=== PATIENT | male | born 1970 | race African-American/Black ===

== ENCOUNTER 2016-10-29 11:04 | Emergency (ER) | payer OTHER ==
[~2016-10-29] VITALS: Ht 172.7 cm; Wt 113.4 kg
[~2016-10-29 11:04] MED LIST: NYQUIL D COLD295 ML; OSELB75 PO; TUSSIONEX PENN473 ML PO; TYLENOL COLD &1 EACH; VENTOLIN HFA 1818 GM INH; [UNRECOGNIZED DRUG - OTHER]
[2016-10-29 11:26] LABS: URINE BILIRUBIN NEGATIVE (Negative); URINE BLOOD NEGATIVE (Negative); URINE COLOR YELLOW; URINE GLUCOSE-RANDOM* NEGATIVE (Negative); URINE KETONES NEGATIVE (Negative); URINE NITRITE NEGATIVE (Negative); URINE PROTEIN (DIPSTICK) TRACE (Negative); URINE SPECIFIC GRAVITY 1.015 (1.003-1.035)
[2016-10-29 11:27] LABS: HEMATOCRIT 44.1 % (42.0-52.0); HEMOGLOBIN 14.4 gm/dL (14.0-18.0); MCH 24.3 pg (26.0-34.0); MCHC 32.7 g/dL (28.0-37.0); MCV 74.5 fL (80.0-100.0); PLATELET COUNT 230 thou/uL (150-400); RBC 5.93 mil/uL (4.50-6.00); RDW 14.4 % (10.5-14.5); WBC 8.8 thou/uL (4.0-11.0)
[2016-10-29 11:28] LABS: MANUAL DIFF YES
[2016-10-29 11:35] LABS: CALCIUM 8.3 mg/dL (8.5-10.1); CREATININE 1.1 mg/dL (0.7-1.3)
[2016-10-29 11:39] LABS: TOTAL BILIRUBIN 0.5 mg/dL (<0.1-1.0); TOTAL PROTEIN 7.9 g/dL (6.4-8.2)
[2016-10-29 11:45] LABS: ABSOLUTE NEUTROPHILS 7.2 thou/uL (1.4-8.2); TOTAL CELL COUNT 100
[2016-10-29 11:46] LABS: ANISOCYTOSIS 1+; MICROCYTES 1+
[2016-10-29] MEDS ORDERED: NORCO 5-325 TA1 EACH PO (13:53)
[2016-10-29 14:12] VITALS: BP 145/88
== END 2016-10-29 14:16 | disposition home or self-care (01) ==
LOC: ER 11:04
PROVIDERS: Physician Assistant
DX: N20.0 Calculus of kidney (principal)

== ENCOUNTER 2019-03-06 03:45 | Emergency (ER) | payer OTHER ==
[~2019-03-06] VITALS: Ht 175.3 cm; Wt 110.2 kg
[~2019-03-06 03:45] MED LIST changes: +NORCO 5-325 TA1 EACH PO
[2019-03-06] MEDS ORDERED: NOHOMEMEDICATIONS (03:55)
[2019-03-06 04:35] LABS: URINE BILIRUBIN NEGATIVE (Negative); URINE BLOOD TRACE (Negative); URINE CLARITY CLOUDY; URINE COLOR YELLOW; URINE GLUCOSE-RANDOM* NEGATIVE (Negative); URINE KETONES NEGATIVE (Negative); URINE NITRITE-REFLEX NEGATIVE (Negative); URINE PROTEIN (DIPSTICK) 1+ (Negative)
[2019-03-06 04:52] LABS: URINE LEUKOCYTES-REFLEX 3+ (Negative)
[2019-03-06 04:56] LABS: CALCIUM 8.7 mg/dL (8.5-10.1); POTASSIUM 3.5 mmol/L (3.5-5.1)
[2019-03-06 04:57] LABS: BACTERIA-REFLEX >30 Many /HPF (None Seen); CASTS None Seen /LPF (None Seen); CRYSTALS None Seen /LPF (None Seen); MUCUS 0-3 Light strn/LPF (None Seen); SQUAMOUS 4-10 Moderate /LPF (0-3); URINE RBC 0-2 Rare /HPF (0-2); URINE WBC-REFLEX >25 Many /HPF (0-5)
[2019-03-06 05:02] LABS: ALBUMIN 3.6 g/dL (3.4-5.0); DIRECT BILIRUBIN 0.2 mg/dL (<0.1-0.3); TOTAL PROTEIN 7.8 g/dL (6.4-8.2)
[2019-03-06 05:32] LABS: ABSOLUTE NEUTROPHILS 7.3 thou/uL (1.4-8.2); BASOPHILS 0.4 % (0.0-2.0); EOSINOPHILS 1.1 % (0.0-3.0); HEMATOCRIT 40.4 % (42.0-52.0); HEMOGLOBIN 13.5 gm/dL (14.0-18.0); LYMPHOCYTES 11.2 % (24.0-44.0); MCH 24.5 pg (26.0-34.0); MCHC 33.3 g/dL (28.0-37.0); MCV 73.6 fL (80.0-100.0); MONOCYTES 10.5 % (1.0-8.0); PLATELET COUNT 230 thou/uL (150-400); POLYS 76.8 % (36.0-66.0); RBC 5.49 mil/uL (4.50-6.00); RDW 14.2 % (10.5-14.5); WBC 9.5 thou/uL (4.0-11.0)
[2019-03-06] MEDS ORDERED: KEFLEX500 M1 PO (06:21)
[2019-03-06 06:56] VITALS: BP 143/84
[2019-03-06] MEDS ORDERED: ULTRAM 50MG TAB50 MG PO (22:32)
== END 2019-03-06 06:58 | disposition home or self-care (01) ==
LOC: ER 03:45
PROVIDERS: Emergency Medicine
DX: N12 Tubulo-interstitial nephritis, not specified as acute or chronic (principal)

== ENCOUNTER 2019-03-06 20:56 | Emergency (ER) | payer OTHER ==
[~2019-03-06] VITALS: Ht 175.3 cm; Wt 111.1 kg
[~2019-03-06 20:56] MED LIST changes: +KEFLEX500 M1 PO; +NOHOMEMEDICATIONS
[2019-03-06 21:16] LABS: URINE BILIRUBIN NEGATIVE (Negative); URINE BLOOD NEGATIVE (Negative); URINE CLARITY CLEAR; URINE COLOR YELLOW; URINE GLUCOSE-RANDOM* NEGATIVE (Negative); URINE KETONES NEGATIVE (Negative); URINE NITRITE-REFLEX NEGATIVE (Negative); URINE PROTEIN (DIPSTICK) TRACE (Negative)
[2019-03-06 21:19] LABS: URINE LEUKOCYTES-REFLEX 1+ (Negative)
[2019-03-06 21:28] LABS: SQUAMOUS 0-3 Few /LPF (0-3)
[2019-03-06 21:29] LABS: BACTERIA-REFLEX 1-9 Few /HPF (None Seen); CASTS None Seen /LPF (None Seen); CRYSTALS None Seen /LPF (None Seen); URINE RBC 0-2 Rare /HPF (0-2)
[2019-03-06] MEDS ORDERED: ULTRAM 50MG TAB50 MG PO (22:32)
[2019-03-06 22:45] VITALS: BP 130/86
== END 2019-03-06 22:45 | disposition home or self-care (01) ==
LOC: ER 20:56
PROVIDERS: Nurse Practitioner
DX: M54.9 Dorsalgia, unspecified (principal)